=== PATIENT | female | born 1955 | race African-American/Black ===

== ENCOUNTER 2020-11-17 09:18 | Emergency (ER) | payer MEDICARE, BC ==
[~2020-11-17] VITALS: Ht 160 cm; Wt 86.0 kg
[2020-11-17] MEDS ORDERED: KETOROLAC 60 MG/2 ML VIAL. IM ONE (10:00)
[2020-11-17] MEDS ORDERED: ORPHENADRINE CITRATE 60 MG/2 ML VIAL. IM ONE (10:00)
--- NOTE | 2020-11-17 10:23 | PHYS DOC ---
Past History Past Medical History: Anxiety, Arthritis, Fibromyalgia, GERD, Hypertension, IBS Past Surgical History: Other Additional Past Surgical Histo: ROTATER CUFF, RIGHT KNEE SURGERY, HERNIA, PITUITARY TUMOR Alcohol Use: None General Adult EDM: Chief Complaint: BACK PAIN OR INJURY HPI: HPI: Patient is a 65-year-old female coming in for a few days of exacerbation of chronic back pain. Patient took a leftover muscle relaxer that she had and Tylenol without improvement. Has had recurrence at home but does avoid taking them. Had MRI done and has a follow-up scheduled with her neurosurgeon for the results. Denies any urine complaints, recent injury or falls. Denies any fevers, weight loss, bowel or bladder dysfunction. Says the pain sometimes radiates down her buttock to her thigh. Review of Systems: Review of Systems: All other systems within normal limits except for as noted in the HPI Current Medications: Current Meds: Current Medications Medications (Trade) Dose Ordered Sig/[facility] Start Time Stop Time Status Last Admin Dose Admin Ketorolac Tromethamine (Toradol Im) 60 mg 1X ONCE 11/17/20 10:00 11/17/20 10:06 DC Orphenadrine Citrate (Norflex) 60 mg 1X ONCE 11/17/20 10:00 11/17/20 10:06 DC Allergies: Allergies: Allergies Coded Allergies Type Severity Reaction Last Updated Verified No Known Drug Allergies 11/17/20 No Physical Exam: PE: Constitutional: Well developed, well nourished, no acute distress, non-toxic appearance. [] HENT: Normocephalic, atraumatic, bilateral external ears normal, nose normal. [] Eyes: PERRLA, conjunctiva normal, no discharge. [] Neck: No rigidity, supple, no stridor. [] Cardiovascular: Regular rate and rhythm, brisk cap refill [] Lungs & Thorax: Non labored symmetric respirations, no tachypnea or respiratory distress [] Abdomen: Soft, nondistended. Skin: Warm, dry, no erythema, no rash. [] Back: No spinal tenderness, no step-off deformities, bilateral lower lumbar tenderness palpation Extremities: No deformities, range of motion grossly intact, no lower extremity edema [] Neurologic: Alert and oriented X 3, no focal deficits noted. [] Psychologic: Affect normal, judgement normal, mood normal. [] Current Patient Data: Vital Signs: Vital Signs Date Time Temp Pulse Resp B/P (MAP) Pulse Ox O2 Delivery O2 Flow Rate FiO2 11/17/20 09:27 97.7 105 18 128/71 (90) 97 Room Air EKG: EKG: [] Radiology/Procedures: Radiology/Procedures: Lumbar spine 3 views. HISTORY: Low back pain 3 views were taken of the lumbar spine. Spine is in normal alignment. There is disc space narrowing at L4-5. There is mild lower lumbar facet arthritis. There is no acute lumbar fracture. IMPRESSION: 1. Degenerative disc disease at L4-5. [] Heart Score: Risk Factors: Risk Factors: DM, Current or recent (<one month) smoker, HTN, HLP, family history of CAD, obesity. Risk Scores: Score 0 - 3: 2.5% MACE over next 6 weeks - Discharge Home Score 4 - 6: 20.3% MACE over next 6 weeks - Admit for Clinical Observation Score 7 - 10: 72.7% MACE over next 6 weeks - Early Invasive Strategies Course & Med Decision Making: Course & Med Decision Making Pertinent Labs and Imaging studies reviewed. (See chart for details) [] Dragon Disclaimer: Dragon Disclaimer: This electronic medical record was generated, in whole or in part, using a voice recognition dictation system. Departure Departure: Impression: Primary Impression: Acute exacerbation of chronic low back pain Disposition: 01 DC HOME SELF CARE/HOMELESS Condition: STABLE Referrals: PCP,NO (PCP) Patient Instructions: Chronic Back Pain Scripts Ondansetron (ONDANSETRON ODT) 4 Mg Tab.rapdis 1 TAB PO PRN Q6-8HRS PRN for NAUSEA, #16 TAB Prov: NICANOR COLUNGA MD 11/17/20 Cyclobenzaprine Hcl (CYCLOBENZAPRINE HCL) 5 Mg Tablet 1 TAB PO TID PRN for PAIN for 5 Days, #15 TAB Prov: NICANOR COLUNGA MD 11/17/20 NICANOR COLUNGA MD Nov 17, 2020 10:23
--- NOTE | 2020-11-17 10:42 | RAD ---
Lumbar spine 3 views. HISTORY: Low back pain 3 views were taken of the lumbar spine. Spine is in normal alignment. There is disc space narrowing a t L4-5. There is mild lower lumbar facet arthritis. There is no acute lumbar fracture. IMPRESSION: 1. Degenerative disc disease at L4-5. Electronically signed by: Alber Webb MD (11/17/2020 10:40 AM) [facility]
[2020-11-17 10:52] LABS: BILIRUBIN,URINE NEG (NEG); CLARITY,URINE HAZY; COLOR,URINE YELLOW; GLUCOSE,URINE NEG (NEG)
[2020-11-17 10:53] LABS: BACTERIA,URINE FEW /HPF (0-FEW); NITRITE,URINE NEG (NEG); SQUAMOUS EPITHELIAL CELL,UR MOD /LPF; UROBILINOGEN,URINE 0.2 mg/dL (0.2 mg/dL)
[2020-11-17 11:38] VITALS: BP 116/62
[2020-11-17] MEDS ORDERED: CYCL5TAB PO (11:46)
[2020-11-17] MEDS ORDERED: ONDA4TAB12 PO (11:46)
== END 2020-11-17 11:53 | disposition home or self-care (01) ==
LOC: ER 09:18
DX: G89.29 Other chronic pain (principal); M54.5 Low back pain; K21.9 Gastro-esophageal reflux disease without esophagitis; I10 Essential (primary) hypertension; K58.9 Irritable bowel syndrome, unspecified
CPT/HCPCS: 72100; 81001; 87086; 96372; 99284; J1885; J2360

== ENCOUNTER 2021-01-02 05:52 | Emergency (ER) | payer MEDICARE, BC ==
[~2021-01-02] VITALS: Ht 160 cm; Wt 86.0 kg
[2021-01-02 05:52] VITALS: BP 141/77
[~2021-01-02 05:52] MED LIST: CYCL5TAB PO; ONDA4TAB12 PO
--- NOTE | 2021-01-02 06:25 | PHYS DOC ---
Past History Past Medical History: Anxiety, Arthritis, Fibromyalgia, GERD, Hypertension, IBS Past Surgical History: Other Additional Past Surgical Histo: ROTATER CUFF, RIGHT KNEE SURGERY, HERNIA, PITUITARY TUMOR Alcohol Use: None Adult General Chief Complaint Chief Complaint: BACK PAIN OR INJURY HPI HPI Patient is a 61-year-old female with known history of spinal degenerative disease and chronic back pain now presenting to emergency department due to worsening of her pain. Patient had been seen here approximately 2 months ago with back pain and and been following up with a neurosurgeon regarding eventually obtaining a procedure to help with her back pain. Patient states that she has been in intermittent pain since that time. States that over the last 2 days is worse to the point where she is no longer able to sleep as having difficulty ambulating. Denies any reinjury to the area. Denies any nausea, vomiting, fever, chills, dizziness, lightheadedness or lower extremity numbness or weakness. Review of Systems Review of Systems Constitutional: Denies fever or chills [] Eyes: Denies change in visual acuity, redness, or eye pain [] HENT: Denies nasal congestion or sore throat [] Respiratory: Denies cough or shortness of breath [] Cardiovascular: No additional information not addressed in HPI [] GI: Denies abdominal pain, nausea, vomiting, bloody stools or diarrhea [] : Denies dysuria or hematuria [] Musculoskeletal: Denies back pain or joint pain [] Integument: Denies rash or skin lesions [] Neurologic: Denies headache, focal weakness or sensory changes [] Endocrine: Denies polyuria or polydipsia [] All other systems were reviewed and found to be within normal limits, except as documented in this note. Current Medications Current Medications Current Medications Medications (Trade) Dose Ordered Sig/[facility] Start Time Stop Time Status Last Admin Dose Admin Ketorolac Tromethamine (Toradol Im) 60 mg 1X ONCE 01/02/21 06:30 01/02/21 06:31 UNV Orphenadrine Citrate (Norflex) 60 mg 1X ONCE 01/02/21 06:30 01/02/21 06:31 UNV Allergies Allergies Allergies Coded Allergies Type Severity Reaction Last Updated Verified No Known Drug Allergies 11/17/20 No Physical Exam Physical Exam Constitutional: Well developed, well nourished, no acute distress, non-toxic appearance. [] HENT: Normocephalic, atraumatic, bilateral external ears normal, oropharynx moist, no oral exudates, nose normal. [] Eyes: PERRLA, EOMI, conjunctiva normal, no discharge. [] Neck: Normal range of motion, no tenderness, supple, no stridor. [] Cardiovascular:Heart rate regular rhythm, no murmur [] Lungs & Thorax: Bilateral breath sounds clear to auscultation [] Abdomen: Bowel sounds normal, soft, no tenderness, no masses, no pulsatile masses. [] Skin: Warm, dry, no erythema, no rash. [] Back: No tenderness, no CVA tenderness. [] Extremities: No tenderness, no cyanosis, no clubbing, ROM intact, no edema. [] Neurologic: Alert and oriented X 3, normal motor function, normal sensory function, no focal deficits noted. [] Psychologic: Affect normal, judgement normal, mood normal. [] EKG EKG [] Radiology/Procedures Radiology/Procedures [] Heart Score C/O Chest Pain: No Risk Factors: Risk Factors: DM, Current or recent (<one month) smoker, HTN, HLP, family history of CAD, obesity. Risk Scores: Risk Factors: DM, Current or recent (<one month) smoker, HTN, HLP, family history of CAD, obesity. Course & Med Decision Making Course & Med Decision Making Pertinent Labs and Imaging studies reviewed. (See chart for details) 65-year-old female presenting emergency department given chronic back pain. To review the previous chart and the patient was given Norflex and Toradol and this seemed to improve her symptoms. Will try again this time and reevaluate. 06:58 -patient states her symptoms have resolved. At this time requesting discharge home. Will discharge home patient plan to follow-up with Dr. Nicola Farfan Disclaimer Naheed Disclaimer This electronic medical record was generated, in whole or in part, using a voice recognition dictation system. Departure Departure: Impression: Primary Impression: Back pain Disposition: 01 DC HOME SELF CARE/HOMELESS Condition: GOOD Referrals: EREN FISCHER (PCP) Patient Instructions: Back Pain, Adult Additional Instructions: EMERGENCY DEPARTMENT GENERAL DISCHARGE INSTRUCTIONS Thank you for coming to [facility] Emergency Department (ED) today and trusting us with you care. We trust that you had a positive experience in our Emergency Department. If you wish to speak to the department management, you may call the Director at [phone]. YOUR FOLLOW UP INSTRUCTIONS ARE FOLLOWS: 1. Do you have a private Doctor? If you do not have a private doctor, please ask for a resource list of physicians or clinics that may be able to assist you with follow up care. 2. The Emergency Physicain has interpreted your x-rays. The X-Ray specialist will also review them. If there is a change in the findings, you will be notified in 48 hours when at all possible. 3. A lab test or culture has been done, your results will be reviewed and you will be notified if you need a change in treatment. ADDITIONAL INSTRUCTIONS AND INFORMATION: 1. Your care today has been supervised by a physician who is specially trained in emergency care. Many problems require more than one evaluation for a complete diagnosis and treatment. We recommend that you schedule your follow up appointment as recommended to ensure complete treatment of you illness or injury. If you are unable to obtain follow up care and continue to have a problem, or if your condition worsens, we recommend that you return to the ED. 2. We are not able to safely determine your condition over the phone nor are we able to give sound medical advice over the phone. For these safety reasons, if you call for medical advice we will ask you to come to the ED for further evaluation. 3. If you have any questions regarding these discharge instructions please call the ED at [phone]. SAFETY INFORMATION: In the interest of safety, wellness, and injury prevention; we encourage you to wear your sealbelt, if you smoke; quite smoking, and we encourage family to use a protective helmet for bicycling and other sporting events that present an increased risk for head injury. IF YOUR SYMPTOMS WORSEN OR NEW SYMPTOMS DEVELOP, OR YOU HAVE CONCERNS ABOUT YOUR CONDITION; OR IF YOUR CONDITION WORSENS WHILE YOU ARE WAITING FOR YOUR FOLLOW UP APPOINT MENT; EITHER CONTACT YOUR PRIMARY CARE DOCTOR, THE PHYSICIAN WHOSE NAME AND NUMBER YOU WERE GIVEN, OR RETURN TO THE ED IMMEDIATELY. SELENE CAREY MD Jan 02, 2021 06:25
[2021-01-02] MEDS ORDERED: KETOROLAC 60 MG/2 ML VIAL. IM ONE (06:30)
[2021-01-02] MEDS ORDERED: ORPHENADRINE CITRATE 60 MG/2 ML VIAL. IM ONE (06:30)
== END 2021-01-02 07:05 | disposition home or self-care (01) ==
LOC: ER 05:52
DX: G89.29 Other chronic pain (principal); M54.89 Other dorsalgia; R26.2 Difficulty in walking, not elsewhere classified; F41.9 Anxiety disorder, unspecified; M19.90 Unspecified osteoarthritis, unspecified site; M79.7 Fibromyalgia; K21.9 Gastro-esophageal reflux disease without esophagitis; I10 Essential (primary) hypertension; K58.9 Irritable bowel syndrome, unspecified
CPT/HCPCS: 96372; 99284; J1885; J2360

== ENCOUNTER 2021-03-16 03:04 | Emergency (ER) | payer MEDICARE, BC ==
[~2021-03-16] VITALS: Ht 160 cm; Wt 86.0 kg
[2021-03-16] MEDS ORDERED: amlodipine (03:45)
[2021-03-16] MEDS ORDERED: GABA-586 PO (03:45)
[2021-03-16] MEDS ORDERED: losartin (03:45)
[2021-03-16] MEDS ORDERED: HYDR-2155 PO (03:54)
--- NOTE | 2021-03-16 03:54 | PHYS DOC ---
Past History Past Medical History: Anxiety, Arthritis, Fibromyalgia, GERD, Hypertension, IBS Past Surgical History: Other Additional Past Surgical Histo: ROTATER CUFF, RIGHT KNEE SURGERY, HERNIA, PITUITARY TUMOR Alcohol Use: None Adult General Chief Complaint Chief Complaint: MUSCLE SPASM/CRAMP [facility] HPI Patient is a 65-year-old female with a past medical history significant for GERD, IBS, anxiety and fibromyalgia who presents with left leg spasms. States has been going on intermittently over the last month, and cannot identify any aggravating or alleviating factors. Denies any recent travel, illnesses, fevers, chest pain, shortness of breath, abdominal pain, nausea, vomiting, dysuria, hematuria or blood in the stool. Denies any trouble making urine or having bowel movements. Denies any numbness/weakness/tingling. States that when she is having spasm or cramp she can still walk but it causes discomfort and when she is not she can walk normally. States she has not had a chance to talk to her primary care physician about this. Review of Systems Review of Systems Review of systems otherwise unremarkable except noted in HPI Allergies Allergies Allergies Coded Allergies Type Severity Reaction Last Updated Verified No Known Drug Allergies 03/16/21 No Physical Exam Physical Exam Constitutional: Well developed, well nourished, no acute distress, non-toxic appearance. [] Neck: Normal range of motion, Cardiovascular:Heart rate regular rhythm, no murmur [] Lungs & Thorax: No respiratory distress Skin: Warm, dry, no erythema, no rash. [] Back: No tenderness, no CVA tenderness. [] Extremities: No tenderness, no cyanosis, no clubbing, ROM intact, no edema. [] Neurologic: Alert and oriented X 3, normal motor function, normal sensory function, able to sit, stand and walk, no focal deficits noted. [] Psychologic: Affect normal, judgement normal, mood normal. [] EKG EKG [] Radiology/Procedures Radiology/Procedures [] Heart Score C/O Chest Pain: No Risk Factors: Risk Factors: DM, Current or recent (<one month) smoker, HTN, HLP, family h istory of CAD, obesity. Risk Scores: Risk Factors: DM, Current or recent (<one month) smoker, HTN, HLP, family history of CAD, obesity. Course & Med Decision Making Course & Med Decision Making Patient is a 65-year-old female who presents with left leg spasms Vital signs not concerning. Physical exam noted above. Given pain medication in the ED. Discussed pain management at home. Given pain prescription. Advised to follow- up with primary care physician. Gave return precautions to the ED. Patient grateful, verbalized understanding and agreed with plan of discharge. [] Dragon Disclaimer Dragon Disclaimer This electronic medical record was generated, in whole or in part, using a voice recognition dictation system. Departure Departure: Impression: Primary Impression: Leg muscle spasm Disposition: HOME / SELF CARE / HOMELESS Condition: GOOD Referrals: EREN FISCHER (PCP) Patient Instructions: Muscle Cramps Additional Instructions: Please read all the attached information very carefully. Please take all your medications as prescribed. Continue taking your muscle relaxers as prescribed as well. You can do a short course of ibuprofen at 600 mg 3 times a day with your prescription pain medicine. Please call your primary care physician first thing Thursday morning to discuss your ED visit and set up a follow-up visit as soon as possible. Please come back to the ED with new or concerning symptoms as discussed. Scripts Hydrocodone Bit/Acetaminophen (HYDROCODONE-APAP 5-325 ) 1 Each Tablet 1 TAB PO TID PRN for leg pain for 3 Days, #9 TAB 0 Refills Prov: ELANA MO MD 03/16/21 ELANA MO MD Mar 16, 2021 03:54
[2021-03-16 04:00] VITALS: BP 110/71
[2021-03-16] MEDS ORDERED: oxyCODONE/APAP 5/325 1 TAB TABLET PO ONE (04:00)
[2021-03-16] MEDS ORDERED: IBUPROFEN 600 MG TABLET. PO ONE (04:00)
[2021-03-16] MEDS ORDERED: KETOROLAC 30 MG/ML VIAL. ONE (04:03)
[2021-03-16] MEDS ORDERED: KETOROLAC 30 MG/ML VIAL. IM ONE (04:15)
== END 2021-03-16 04:13 | disposition home or self-care (01) ==
LOC: ER 03:04
DX: M62.831 Muscle spasm of calf (principal); K21.9 Gastro-esophageal reflux disease without esophagitis; F41.9 Anxiety disorder, unspecified; I10 Essential (primary) hypertension
CPT/HCPCS: 96372; 99283; J1885

== ENCOUNTER → 2021-04-25 | Outpatient (CLI) | payer MEDICARE, BC ==
[~2021-04-25] MED LIST changes: +GABA-586 PO; +HYDR-2155 PO; +amlodipine; +losartin
--- NOTE | 2021-04-25 16:46 | RAD ---
EXAMINATION: XR SHOULDER_RIGHT 2+ VIEWS CLINICAL HISTORY: Right shoulder pain TECHNIQUE: XR SHOULDER_RIGHT 2+ VIEWS Number of Images/Views: 3 COMPARISON: None FINDINGS: Glenohumeral joint space alignment relatively well-maintained. Moderate hypertrophic acromioclavicula r degenerative changes. No acute fracture. Acromiohumeral interval maintained. IMPRESSION: No acute osseous abnormality. Electronically signed by: David Bean DO (04/25/2021 4:44 PM) [id number]
--- NOTE | 2021-04-25 16:52 | RAD ---
EXAMINATION: XR KNEE_AP BILAT STANDING, XR KNEE_RT 1-2 VIEWS CLINICAL HISTORY: BILATERAL KNEE PAIN, RECENT LEFT KNEE REPLACEMENT TECHNIQUE: XR KNEE_AP BILAT STANDING, XR KNEE_RT 1-2 VIEWS Number of Images/Views: 3 COMPARISON: None FINDINGS: Marked joint space narrowing in the medial compartment with [id number] contact and associated genu varus. Moderate to severe lateral compartment narrowing with chondrocalcinosis. Moderate to severe pa tellofemoral compartment narrowing. Tricompartmental small marginal osteophytes. No acute fracture. S mall suprapatellar enthesophyte. No significant joint effusion. Left total knee arthroplasty incompletely evaluated. IMPRESSION: Essentially unchanged tricompartmental degenerative changes right knee, advanced in the medial compar tment. Electronically signed by: David Bean DO (04/25/2021 4:49 PM) [id number]
--- NOTE | 2021-04-25 16:52 | RAD ---
EXAMINATION: XR KNEE_AP BILAT STANDING, XR KNEE_RT 1-2 VIEWS CLINICAL HISTORY: BILATERAL KNEE PAIN, RECENT LEFT KNEE REPLACEMENT TECHNIQUE: XR KNEE_AP BILAT STANDING, XR KNEE_RT 1-2 VIEWS Number of Images/Views: 3 COMPARISON: None FINDINGS: Marked joint space narrowing in the medial compartment with [id number] contact and associated genu varus. Moderate to severe lateral compartment narrowing with chondrocalcinosis. Moderate to severe pa tellofemoral compartment narrowing. Tricompartmental small marginal osteophytes. No acute fracture. S mall suprapatellar enthesophyte. No significant joint effusion. Left total knee arthroplasty incompletely evaluated. IMPRESSION: Essentially unchanged tricompartmental degenerative changes right knee, advanced in the medial compar tment. Electronically signed by: David Baen DO (04/25/2021 4:49 PM) [id number]
== END ==
LOC: RAD 15:35
PROVIDERS: ATTEND Physician Assistant
DX: M19.011 Primary osteoarthritis, right shoulder (principal); M17.11 Unilateral primary osteoarthritis, right knee; M21.161 Varus deformity, not elsewhere classified, right knee; M11.261 Other chondrocalcinosis, right knee; M25.761 Osteophyte, right knee; Z96.652 Presence of left artificial knee joint
CPT/HCPCS: 73030; 73560; 73565

== ENCOUNTER → 2021-05-24 | Outpatient (CLI) | payer MEDICARE, BC ==
--- NOTE | 2021-05-24 11:10 | RAD ---
3 views left shoulder without comparison for left shoulder pain. FINDINGS: There is no fracture, dislocation, or acute osseous abnormality. There is calcified case ov erlying greater tuberosity, which may be insertional related to rotator cuff calcific tendinosis. Mil d narrowing of the glenohumeral joint. Mild acromioclavicular arthrosis. IMPRESSION: 1. No acute osseous abnormality. 2. Dystrophic calcification overlying the greater tuberosity, possibly due to calcific tendinosis of the terminal rotator cuff insertion. Electronically signed by: Andrade Ayon MD (05/24/2021 11:07 AM) [id number]
== END ==
LOC: RAD 09:28
PROVIDERS: ATTEND Physician Assistant
DX: M19.012 Primary osteoarthritis, left shoulder (principal); M25.812 Other specified joint disorders, left shoulder
CPT/HCPCS: 73030

== ENCOUNTER → 2021-06-21 | Outpatient (CLI) | payer MEDICARE, BC ==
--- NOTE | 2021-06-21 17:45 | RAD ---
EXAM: XR CERVICAL SPINE 2-3V 06/21/2021 8:52 AM CLINICAL INDICATION: Cervical radiculopathy COMPARISON: MRI cervical spine 03/22/2020 TECHNIQUE: 4 views of the cervical spine FINDINGS: No acute fracture. Alignment is normal. There is mild disc space narrowing, greatest at C5 -C6 where there are prominent anterior osteophytes. Mild facet arthrosis. The dens is intact and symm etric and the ring of C1. Prevertebral soft tissues normal. There are calcifications in the carotid b ulbs. IMPRESSION: Mild degenerative disc disease, greatest at C5-C6. Electronically signed by: Eva Neves MD (06/21/2021 5:42 PM) [id number]
== END ==
LOC: RAD 08:35
PROVIDERS: ATTEND Physician Assistant
DX: M50.122 Cervical disc disorder at C5-C6 level with radiculopathy (principal); M47.22 Other spondylosis with radiculopathy, cervical region; M25.78 Osteophyte, vertebrae; M48.02 Spinal stenosis, cervical region; I65.29 Occlusion and stenosis of unspecified carotid artery
CPT/HCPCS: 72040

== ENCOUNTER → 2021-07-03 | Outpatient (CLI) | payer MEDICARE, BC ==
--- NOTE | 2021-07-03 16:38 | RAD ---
MG 2D BILAT SCREENING 07/03/2021 8:29 AM INDICATION: Asymptomatic screening mammogram. COMPARISON: None available TECHNIQUE: 2D CC and MLO projections were obtained of each breast. FINDINGS: Breast density: Category C: The breats are heterogeneously dense, which may obscure small masses. Right breast: There are no suspicious microcalcifications, masses or areas of architectural distortio n. Left breast: There are no suspicious microcalcifications, masses or areas of architectural distortion . IMPRESSION: Negative bilateral mammogram. BI-RADS category: 1; Negative Recommendations: Recommend annual screening mammography in one year. Electronically signed by: Yahaira Anthony MD (07/03/2021 4:36 PM) [id number]
== END ==
LOC: MAMMO 08:14
PROVIDERS: ATTEND Family Medicine
DX: Z12.31 Encounter for screening mammogram for malignant neoplasm of breast (principal)
CPT/HCPCS: 77067

== ENCOUNTER → 2021-07-26 | Outpatient (CLI) | payer MEDICARE, BC ==
--- NOTE | 2021-07-27 08:12 | RAD ---
XR LUMBAR SPINE 1 VIEW, XR L-SPINE BENDING ONLY 2-3 VIEWS dated 07/26/2021 8:53 AM. History: Reason: SPONDYLOSTHESIS, BACK PAIN / Spl. Instructions: / History: Comparison: Study of 11/17/2020. Findings: Alignment appears normal. No fracture is seen. There is some disc narrowing especially at L4-5 and L5 -S1. No destructive process is evident. Radiographs obtained with flexion and extension show no apparent instability. Impression: 1. Degenerative disc disease. No apparent instability. Electronically signed by: Shahab Shepherd Jr., MD (07/27/2021 8:09 AM) [id number]
== END ==
LOC: RAD 08:36
PROVIDERS: ATTEND Neurological Surgery
DX: M51.36 Other intervertebral disc degeneration, lumbar region (principal); M43.16 Spondylolisthesis, lumbar region
CPT/HCPCS: 72020; 72100

== ENCOUNTER → 2021-08-06 | Outpatient (CLI) | payer MEDICARE, BC ==
--- NOTE | 2021-08-06 11:03 | RAD ---
EXAM: DUAL ENERGY X-RAY ABSORPTIOMETRY (DEXA). HISTORY: Postmenopausal screening. FINDINGS: The lowest measured T-score is -2.0 in the right hip, based on a bone mineral density of 0. 713 g/cm^2. Refer to the worksheets for full detail. No comparison examinations are available. IMPRESSION: 1. Low bone mass. Bone mineral density yields a T-score between -1.0 and -2.5. Fracture risk is incre ased. 2. FRAX report: Not calculated. METHODOLOGY: Dual energy x-ray absorptiometry was performed to measure bone mineral density. The foll owing analysis is based on the 2019 Official Positions of the International Society for Clinical Dens itometry: Measurements of the hips and the average of L1-L4 are preferred. When the spine and/or hip cannot be feasibly measured or interpreted, or in the setting of hyperparathyroidism, distal radial bone minera l density may be measured. The lumbar spine T-score is based on the average bone mineral density of L1-L4. In the setting of art ifact or anatomic abnormality, some lumbar levels may be excluded, and the remaining levels used for calculation. A single lumbar level is not used for diagnosis, and if only a single level is available for assessment, another anatomic site will be used to assign a diagnosis. The hip T-score is based on the bone mineral density measurement of the femoral neck or total proxima l femur of either side, whichever is lowest. Bilateral mean values are not used for diagnosis. The forearm T-score is derived from 33% of the distal radius of the nondominant forearm. Electronically signed by: Anneliese Slaughter MD (08/06/2021 11:01 AM) [id number]
== END ==
LOC: DXRAD 09:46
PROVIDERS: ATTEND Family Medicine
DX: M85.88 Other specified disorders of bone density and structure, other site (principal); Z78.0 Asymptomatic menopausal state
CPT/HCPCS: 77080

== ENCOUNTER 2021-10-02 11:00 | Emergency (ER) | payer MEDICARE, BC ==
[~2021-10-02] VITALS: Ht 165.1 cm; Wt 87.0 kg
--- NOTE | 2021-10-02 11:20 | PHYS DOC ---
Past History Past Medical History: Anxiety, Arthritis, Fibromyalgia, GERD, Hypertension, IBS, Other Additional Past Medical Histor: pit tumor removed >10yrs ago Past Surgical History: Other Additional Past Surgical Histo: ROTATER CUFF, RIGHT KNEE SURGERY, HERNIA, PITUITARY TUMOR Alcohol Use: None General Adult EDM: Chief Complaint: CHEST WALL PAIN HPI: HPI: Patient is a 66-year-old female who presents to the emergency department for a nonproductive cough, mild shortness of breath, nausea and nasal and chest congestion with chest wall pain only while coughing. Patient reports that symptoms started 2 days ago. She denies any sick exposures, fevers, loss of taste or smell, vomiting, diarrhea. Patient has a history of anxiety, arthritis, fibromyalgia, hypertension. Review of Systems: Review of Systems: Constitutional: See HPI HENT: See HPI Respiratory: See HPI Cardiovascular: See HPI GI: See HPI Neurologic: See HPI Psychiatric: See HPI Allergies: Allergies: Allergies Coded Allergies Type Severity Reaction Last Updated Verified No Known Drug Allergies 03/16/21 No Physical Exam: PE: Constitutional: Well developed, well nourished, no acute distress, non-toxic appearance. [] HENT: Normocephalic, atraumatic, bilateral external ears normal, oropharynx moist, no oral exudates, nose normal. [] Eyes: PERRL, EOMI, conjunctiva normal, no discharge. [] Neck: Normal range of motion, no tenderness, supple, no stridor. [] Cardiovascular:Heart rate tachycardia rhythm, no murmur [] Lungs & Thorax: Bilateral breath sounds clear to auscultation, chest pain reproducable [] Abdomen: Bowel sounds normal, soft, no tenderness, no masses, no pulsatile masses. [] Skin: Warm, dry, no erythema, no rash. [] Back: normal ROM Extremities: No tenderness, no cyanosis, no clubbing, ROM intact, no edema. [] Neurologic: Alert and oriented X 3, normal motor function, normal sensory function, no focal deficits noted. [] Psychologic: Affect normal, judgement normal, mood normal. [] Current Patient Data: Labs: Laboratory Tests Test 10/02/21 11:30 White Blood Count 12.4 x10^3/uL Red Blood Count 3.75 x10^6/uL Hemoglobin 11.9 g/dL Hematocrit 35.6 % Mean Corpuscular Volume 95 fL Mean Corpuscular Hemoglobin 32 pg Mean Corpuscular Hemoglobin Concent 34 g/dL Red Cell Distribution Width 14.2 % Platelet Count 271 x10^3/uL Neutrophils (%) (Auto) 69 % Lymphocytes (%) (Auto) 17 % Monocytes (%) (Auto) 12 % Eosinophils (%) (Auto) 1 % Basophils (%) (Auto) 1 % Neutrophils # (Auto) 8.6 x10^3uL Lymphocytes # (Auto) 2.1 x10^3/uL Monocytes # (Auto) 1.5 x10^3/uL Eosinophils # (Auto) 0.2 x10^3/uL Basophils # (Auto) 0.1 x10^3/uL Sodium Level 142 mmol/L Potassium Level 3.8 mmol/L Chloride Level 106 mmol/L Carbon Dioxide Level 24 mmol/L Anion Gap 12 Blood Urea Nitrogen 13 mg/dL Creatinine 0.9 mg/dL Estimated GFR (Cockcroft-Gault) 75.6 Glucose Level 97 mg/dL Calcium Level 8.5 mg/dL Troponin I High Sensitivity < 4 ng/L Influenza Type A (Rapid) Negative Influenza Type B (Rapid) Negative Current Medications Medications (Trade) Dose Ordered Sig/Randal Route PRN Reason Start Time Stop Time Status Last Admin Dose Admin Sodium Chloride 1,000 ml @ 1,000 mls/hr 1X ONCE IV 10/02/21 11:30 10/02/21 12:29 10/02/21 11:31 Acetaminophen (Tylenol) 1,000 mg 1X ONCE PO 10/02/21 11:30 10/02/21 11:31 DC 10/02/21 11:30 EKG: EKG: EKG performed by ER staff at 1139 shows sinus tachycardia with a rate of 113, QTc 444, no STEMI read by Dr. Rivera at 1200[] Radiology/Procedures: Radiology/Procedures: []PROCEDURE: PORTABLE CHEST 1V EXAM: Chest, single view. HISTORY: Cough. COMPARISON: None. FINDINGS: A frontal view of the chest is obtained. There is no infiltrate, pleural fusion or pneumothorax. The heart is normal in size. IMPRESSION: No acute pulmonary finding. Electronically signed by: Anneliese Moy MD (10/02/2021 11:37 AM) [id number] DICTATED AND SIGNED BY: ANNELIESE MOY MD DATE: 10/02/21 1137 CC: NIC ALMODOVAR RN POSTPARTUM; EREN FISCHER ~MTH0 0 Heart Score: C/O Chest Pain: No Risk Factors: Risk Factors: DM, Current or recent (<one month) smoker, HTN, HLP, family history of CAD, obesity. Risk Scores: Score 0 - 3: 2.5% MACE over next 6 weeks - Discharge Home Score 4 - 6: 20.3% MACE over next 6 weeks - Admit for Clinical Observation Score 7 - 10: 72.7% MACE over next 6 weeks - Early Invasive Strategies Course & Med Decision Making: Course & Med Decision Making Pertinent Labs and Imaging studies reviewed. (See chart for details) Patient presents to the emergency department for multiple symptoms including nasal and chest congestion, nonproductive cough, mild shortness of breath, nausea and chest wall tenderness only while coughing. Patient is mildly tachycardic but is not hypoxic or in any acute respiratory distress. Patients work-up in the ER consisted of blood work, EKG, chest x-ray, Covid and influenza testing. Due to patient's tachycardia, she was treated with a liter of normal saline and Tylenol for pain. Her heart rate improved following treatment and is 101bpm. Patient continues to be non labored and her vital signs are stable. Blood work in the ER was mostly unremarkable she did have mild leukocytosis. Patient negative troponin. Chest x-ray showed no acute findings. Influenza test was negative. Patient's Covid test is pending at this time and he will be notified of those results when they become available in approximately 2 days, advised to self isolate. I discussed with patient all findings and diagnostic testing as well as the need to follow-up with PCP for further evaluation and treatment or return to the ER if any new or worsening symptoms. Strict return precautions were also discussed at length. Patient voiced understanding and agreement with the plan. Patient is hemodynamically stable at the time of disposition. Naheed Disclaimer: Naheed Disclaimer: This electronic medical record was generated, in whole or in part, using a voice recognition dictation system. Departure Departure: Impression: Primary Impression: Person under investigation for COVID-19 Disposition: HOME / SELF CARE / HOMELESS Condition: GOOD Referrals: EREN FISCHER (PCP) Patient Instructions: Cough, Adult Additional Instructions: You were seen in the emergency department for congestion, cough, shortness of breath. Your blood work was unremarkable. Your influenza test was negative. Your Covid test is pending at this time and you will be notified of those results when they become available in approximately 2 days. Please self isolate until you receive these results. For your shortness of breath you are being discharged home with an inhaler that you can use as needed. You are also being discharged home with cough medicine that you can use as needed. For your congestion please take Mucinex [id number]. Increase your fluids and rest. For any pain or fevers take Tylenol and/or ibuprofen. Follow-up with your primary care provider tomorrow regarding your ER visit. Please return to the emergency department if you develop worsening of your shortness of breath, chest pain, high fevers refractory to treatment, intractable nausea or vomiting, weakness or any new or worsening concerns. Scripts Benzonatate (BENZONATATE) 200 Mg Capsule 1 CAP PO PRN TID PRN for cough for 7 Days, #21 CAP 0 Refills Prov: NIC ALMODOVAR APRN 10/02/21 Albuterol Sulfate (PROAIR HFA INHALER) 8.5 Gm Hfa.aer.ad 1 PUFF INH PRN Q6HRS PRN for SHORTNESS OF BREATH for 30 Days, #1 EACH 0 Refills Prov: NIC ALMODOVAR APRN 10/02/21 NIC ALMODOVAR APRN Oct 02, 2021 11:20
[2021-10-02] MEDS ORDERED: IV NORMAL SALINE 1,000ML 1,000 ML IV ONE (11:30)
[2021-10-02] MEDS ORDERED: ACETAMINOPHEN 500 MG TABLET PO ONE (11:30)
--- NOTE | 2021-10-02 11:39 | RAD ---
EXAM: Chest, single view. HISTORY: Cough. COMPARISON: None. FINDINGS: A frontal view of the chest is obtained. There is no infiltrate, pleural fusion or pneumoth orax. The heart is normal in size. IMPRESSION: No acute pulmonary finding. Electronically signed by: Anneliese Slaughter MD (10/02/2021 11:37 AM) [id number]
[2021-10-02 11:52] LABS: BASO # 0.1 x10^3/uL (0.0-0.2); BASO % 1 % (0-3); EOS # 0.2 x10^3/uL (0.0-0.7); EOS % 1 % (0-3); HEMATOCRIT 35.6 % (36.0-47.0); HEMOGLOBIN 11.9 g/dL (12.0-15.5); LYMPH # 2.1 x10^3/uL (1.0-4.8); LYMPH % 17 % (24-48); MEAN CORPUSCULAR HEMOGLOBIN 32 pg (25-35); MEAN CORPUSCULAR HGB CONC 34 g/dL (31-37); MEAN CORPUSCULAR VOLUME 95 fL (79-100); MONO # 1.5 x10^3/uL (0.0-1.1); MONO % 12 % (0-9); NEUT # 8.6 x10^3uL (1.8-7.7); NEUT % 69 % (31-73); PLATELET COUNT 271 x10^3/uL (140-400); RED BLOOD COUNT 3.75 x10^6/uL (3.50-5.40); RED CELL DISTRIBUTION WIDTH 14.2 % (11.5-14.5); WHITE BLOOD COUNT 12.4 x10^3/uL (4.0-11.0)
[2021-10-02 11:58] LABS: CALCIUM 8.5 mg/dL (8.5-10.1); CREATININE 0.9 mg/dL (0.6-1.0); GFR 75.6; POTASSIUM 3.8 mmol/L (3.5-5.1)
--- NOTE | 2021-10-02 12:05 | EKG ---
[address] [address] Test Date: 2021-10-02 Test Time: 11:39:00 Pat Name: CHIRAG MEDINA Department: Room: Gender: F It Intern: MARTHA : 1955 Requested By: NIC ALMODOVAR Order Number: [id number] Reading MD: Measurements Intervals [place] Rate: 113 P: 47 HI: 164 QRS: 4 QRSD: 78 T: 31 QT: 320 QTc: 444 Interpretive Statements SINUS TACHYCARDIA OTHERWISE NORMAL ECG RI6.02 No previous ECG available for comparison
[2021-10-02 12:11] LABS: INFLUENZA A PATIENT NEGATIVE (NEGATIVE); INFLUENZA B PATIENT NEGATIVE (NEGATIVE)
[2021-10-02] MEDS ORDERED: ALBU2.5V8 IH (12:21)
[2021-10-02] MEDS ORDERED: BENZ200C47 PO ×2 (12:21→13:16)
[2021-10-02 12:44] VITALS: BP 130/69
[2021-10-02] MEDS ORDERED: ALBU2.5V8 INH (13:16)
== END 2021-10-02 12:47 | disposition home or self-care (01) ==
LOC: ER 11:00
DX: R05.9 Cough, unspecified (principal); Z20.822 Contact with and (suspected) exposure to COVID-19; R06.02 Shortness of breath; R07.89 Other chest pain; K21.9 Gastro-esophageal reflux disease without esophagitis; I10 Essential (primary) hypertension; K58.9 Irritable bowel syndrome, unspecified
CPT/HCPCS: 36415; 71045; 80048; 84484; 85025; 87804; 93005; 96360; 99285; C9803; J7030; U0003

== ENCOUNTER 2021-11-12 04:52 | Emergency (ER) | payer MEDICARE, BC ==
[~2021-11-12] VITALS: Ht 160 cm; Wt 84.1 kg
[~2021-11-12 04:52] MED LIST changes: +ALBU2.5V8 IH; +ALBU2.5V8 INH; +BENZ200C47 PO
[2021-11-12 05:01] VITALS: BP 137/69
[2021-11-12] MEDS ORDERED: diphenhydrAMINE 50 MG/ML VIAL IVP ONE (06:00)
[2021-11-12] MEDS ORDERED: METOCLOPRAMIDE HCL 10 MG/2 ML VIAL. IVP ONE (06:00)
--- NOTE | 2021-11-12 06:19 | RAD ---
EXAM: XR BILAT FEET 3 VIEWS. HISTORY: Bilateral foot pain. COMPARISON: None. FINDINGS: On the right, soft tissue calcifications overlie a moderate osseous bunion. There is mild f irst metatarsophalangeal osteoarthritis and mild hallux valgus. Soft tissue swelling is noted along t he medial forefoot. No fractures are identified. Other joint spaces are maintained. On the left, there is a small soft tissue bunion. There is a moderate plantar calcaneal spur and ther e are mild calcifications along the proximal plantar fascia. No fractures are identified. Joint space s and alignment are maintained. IMPRESSION: 1. Soft tissue calcifications within a right bunion. Correlate for crystalline arthropathy. Mild firs t metatarsophalangeal osteoarthritis. 2. Changes consistent with chronic plantar fasciitis on the left. Electronically signed by: Kerrie Sutherland MD (11/12/2021 6:17 AM) [id number]
--- NOTE | 2021-11-12 06:25 | PHYS DOC ---
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 Patient denies any known trauma. Reports pain is sharp and stabbing. Patient does have a history of fibromyalgia and arthritis. Patient reports her fibromyalgia and arthritis pain are different than this. Patient denies any fever or chills. Reports has not taking anything for pain today. Patient reports pain worse with ambulation. (JESSIKA LEZAMA DO) Review of Systems: Review of Systems: Constitutional: Denies fever or chills Eyes: Denies redness or eye pain HENT: Denies nasal congestion or sore throat Respiratory: Denies cough or shortness of breath Cardiovascular: Denies chest pain or palpitations GI: Denies abdominal pain, nausea, or vomiting : Denies dysuria or hematuria Musculoskeletal: Denies back pain; reports bilateral foot pain Integument: Denies rash or skin lesions Neurologic: Denies headache, focal weakness or sensory changes Complete systems were reviewed and found to be within normal limits, except as documented in this note. (JESSIKA LEZAMA DO) Current Medications: Current Meds: Current Medications Medications (Trade) Dose Ordered Sig/[facility] Start Time Stop Time Status Last Admin Dose Admin Dexamethasone Sodium Phosphate (Decadron) 10 mg 1X ONCE 11/12/21 06:00 11/12/21 06:01 DC Diphenhydramine HCl (Benadryl) 25 mg 1X ONCE 11/12/21 06:00 11/12/21 05:33 DC Ketorolac Tromethamine (Toradol 15mg Vial) 15 mg 1X ONCE 11/12/21 06:00 11/12/21 06:01 DC Metoclopramide HCl (Reglan Vial) 10 mg 1X ONCE 11/12/21 06:00 11/12/21 05:33 DC Sodium Chloride 1,000 ml @ 1,000 mls/hr 1X ONCE 11/12/21 06:00 11/12/21 06:59 (JESSIKA LEZAMA DO) Allergies: Allergies: Allergies Coded Allergies Type Severity Reaction Last Updated Verified No Known Drug Allergies 03/16/21 No (JESSIKA LEZAMA DO) Physical Exam: PE: Constitutional: Well developed, well nourished, uncomfortable and tearful, non- toxic appearance HENT: Normocephalic, atraumatic Eyes: Conjunctiva normal, no discharge Neck: Normal range of motion, supple Lungs & Thorax: No respiratory distress, equal chest rise and fall Skin: Warm, dry, no erythema, no rash Extremities: Pain to dorsum of bilateral feet with palpation, no deformity noted, DP +2 bilaterally, mild swelling noted to dorsum of both feet Neurologic: Alert and oriented X 3, no focal deficits noted Psychologic: Affect normal, judgment normal (JESSIKA LEZAMA DO) Current Patient Data: Vital Signs: Vital Signs Date Time Temp Pulse Resp B/P (MAP) Pulse Ox O2 Delivery O2 Flow Rate FiO2 11/12/21 05:01 98.2 100 18 137/69 (91) 98 Room Air (JESSIKA LEZAMA DO) Labs: Laboratory Tests Test 11/12/21 06:10 White Blood Count 10.7 x10^3/uL Red Blood Count 3.65 x10^6/uL Hemoglobin 11.6 g/dL Hematocrit 34.9 % Mean Corpuscular Volume 96 fL Mean Corpuscular Hemoglobin 32 pg Mean Corpuscular Hemoglobin Concent 33 g/dL Red Cell Distribution Width 13.4 % Platelet Count 307 x10^3/uL Neutrophils (%) (Auto) 62 % Lymphocytes (%) (Auto) 23 % Monocytes (%) (Auto) 13 % Eosinophils (%) (Auto) 1 % Basophils (%) (Auto) 1 % Neutrophils # (Auto) 6.6 x10^3uL Lymphocytes # (Auto) 2.5 x10^3/uL Monocytes # (Auto) 1.4 x10^3/uL Eosinophils # (Auto) 0.1 x10^3/uL Basophils # (Auto) 0.1 x10^3/uL Erythrocyte Sedimentation Rate Pending Sodium Level 140 mmol/L Potassium Level 3.8 mmol/L Chloride Level 103 mmol/L Carbon Dioxide Level 25 mmol/L Anion Gap 12 Blood Urea Nitrogen 8 mg/dL Creatinine 1.1 mg/dL Estimated GFR (Cockcroft-Gault) 59.9 BUN/Creatinine Ratio 7 Glucose Level 85 mg/dL Lactic Acid Level 1.4 mmol/L Uric Acid 5.7 mg/dL Calcium Level 9.0 mg/dL Magnesium Level 2.0 mg/dL Total Bilirubin 0.9 mg/dL Aspartate Amino Transf (AST/SGOT) 20 U/L Alanine Aminotransferase (ALT/SGPT) 9 U/L Alkaline Phosphatase 92 U/L C-Reactive Protein 58.0 mg/L Total Protein 7.7 g/dL Albumin 3.2 g/dL Albumin/Globulin Ratio 0.7 Current Medications Medications (Trade) Dose Ordered Sig/Randal Route PRN Reason Start Time Stop Time Status Last Admin Dose Admin Sodium Chloride 1,000 ml @ 1,000 mls/hr 1X ONCE IV 11/12/21 06:00 11/12/21 06:59 DC 11/12/21 06:27 Dexamethasone Sodium Phosphate (Decadron) 10 mg 1X ONCE IV 11/12/21 06:00 11/12/21 06:01 DC 11/12/21 06:30 Ketorolac Tromethamine (Toradol 15mg Vial) 15 mg 1X ONCE IVP 11/12/21 06:00 11/12/21 06:01 DC 11/12/21 06:27 Diphenhydramine HCl (Benadryl) 25 mg 1X ONCE IVP 11/12/21 06:00 11/12/21 05:33 DC Metoclopramide HCl (Reglan Vial) 10 mg 1X ONCE IVP 11/12/21 06:00 11/12/21 05:33 DC Vital Signs: Vital Signs Date Time Temp Pulse Resp B/P (MAP) Pulse Ox O2 Delivery O2 Flow Rate FiO2 11/12/21 05:01 98.2 100 18 137/69 (91) 98 Room Air Vital Signs Date Time Temp Pulse Resp B/P (MAP) Pulse Ox O2 Delivery O2 Flow Rate FiO2 11/12/21 05:01 98.2 100 18 137/69 (91) 98 Room Air (JAY OLSEN DO) EKG: EKG: [] (JESSIKA LEZAMA DO) Radiology/Procedures: Radiology/Procedures: [] (JESSIKA LEZAMA DO) Radiology/Procedures: EXAM: XR BILAT FEET 3 VIEWS. HISTORY: Bilateral foot pain. COMPARISON: None. FINDINGS: On the right, soft tissue calcifications overlie a moderate osseous bunion. There is mild first metatarsophalangeal osteoarthritis and mild hallux valgus. Soft tissue swelling is noted along the medial forefoot. No fractures are identified. Other joint spaces are maintained. On the left, there is a small soft tissue bunion. There is a moderate plantar calcaneal spur and there are mild calcifications along the proximal plantar fascia. No fractures are identified. Joint spaces and alignment are maintained. IMPRESSION: 1. Soft tissue calcifications within a right bunion. Correlate for crystalline arthropathy. Mild first metatarsophalangeal osteoarthritis. 2. Changes consistent with chronic plantar fasciitis on the left. Electronically signed by: Kerrie Sutherland MD (11/12/2021 6:17 AM) [id number] (JAY OLSEN DO) Heart Score: C/O Chest Pain: N/A (JESSIKA LEZAMA DO) C/O Chest Pain: No (JAY OLSEN DO) Course & Med Decision Making: Course & Med Decision Making Pertinent Labs and Imaging studies reviewed. (See chart for details) Patient presents with bilateral foot pain primarily to dorsal aspect of midfoot. Feet neurovascularly intact. Patient does have a history of arthritis as well as fibromyalgia. Patient reports pain is different. Denies trauma. X-rays obtained. Labs ordered and pending. Pain addressed. 0600-sign out given to Dr. Olsen for further evaluation and final disposition. Discussed current findings and plan with patient, who acknowledges un derstanding and agreement. (JESSIKA LEZAMA DO) Course & Med Decision Making I assumed care of patient after comprehensive signout from off going physician. I reviewed entirety of ER work-up and personally saw and evaluated patient repeating aspects of history and physical exam Patient has no motor or sensory or neurologic findings of bilateral lower extremities. TP and DP pulses to bilateral feet are intact and 2+ Patient reports pain is worse on left, states it is mostly on ventral portion over the navicular with heightened sensation and pain with light palpation, low risk for vascular/neuro compromise, compartment syndrome, other life or limb conditions Ultimately, joint decision made for discharge home with supportive care practices and close primary care follow-up. I did disclose this might be an acute presentation of more concerning pathology such as gout but likely atypical given presentation today I discussed most likely diagnosis of fibromyalgia versus other nonemergent/life or limb threatening condition. Topics were had to prescribe short-term narcotic pain medication but patient currently prescribed large amounts by primary care physician. Advised her to contact them immediately after ER departure (JAY OLSEN DO) Naheed Disclaimer: Naheed Disclaimer: This electronic medical record was generated, in whole or in part, using a voice recognition dictation system. (JESSIKA LEZAMA DO) Departure Departure: Impression: Primary Impression: Bilateral foot pain Disposition: HOME / SELF CARE / HOMELESS Condition: STABLE Referrals: EREN FISCHER (PCP) Additional Instructions: You have been evaluated in the Emergency Department today for bilateral foot pain. The x-ray of your feet did not show any acute bony abnormalities. I did disclose findings of left chronic plantar fasciitis and right bunion with chronic arthritis findings You can utilize every 4-6 hours to help control your pain. Please continue to take your chronically prescribed narcotic pain medication and review need for medication adjustments with prescriber. Please also rest, ice, and elevate your feet to control your pain. As disclosed, you would benefit from close primary care follow-up in addition to outpatient dag sprayer consultation given your diagnosis of fibromyalgia. Pain management consultation could also be indicated. There is is little indication for orthopedic consultation for your arthritis at present Return to the Emergency Department if you experience worsening pain, numbness/tingling, change of color in your toes, or any other concerning symptoms. JESSIKA LEZAMA DO Nov 12, 2021 06:25 JAY OLSEN DO Nov 12, 2021 07:53
[2021-11-12] MEDS: KETOROLAC 15 MG/ML VIAL. IVP ONE (06:27)
[2021-11-12] MEDS: IV NORMAL SALINE 1,000ML 1,000 ML IV ONE (06:27)
[2021-11-12] MEDS: DEXAMETHASONE SOD PHOS 10 MG/ML VIAL. IV ONE (06:30)
[2021-11-12 06:52] LABS: BASO # 0.1 x10^3/uL (0.0-0.2); BASO % 1 % (0-3); EOS # 0.1 x10^3/uL (0.0-0.7); EOS % 1 % (0-3); HEMATOCRIT 34.9 % (36.0-47.0); HEMOGLOBIN 11.6 g/dL (12.0-15.5); LYMPH # 2.5 x10^3/uL (1.0-4.8); LYMPH % 23 % (24-48); MEAN CORPUSCULAR HEMOGLOBIN 32 pg (25-35); MEAN CORPUSCULAR HGB CONC 33 g/dL (31-37); MEAN CORPUSCULAR VOLUME 96 fL (79-100); MONO # 1.4 x10^3/uL (0.0-1.1); MONO % 13 % (0-9); NEUT # 6.6 x10^3uL (1.8-7.7); NEUT % 62 % (31-73); PLATELET COUNT 307 x10^3/uL (140-400); RED BLOOD COUNT 3.65 x10^6/uL (3.50-5.40); RED CELL DISTRIBUTION WIDTH 13.4 % (11.5-14.5); WHITE BLOOD COUNT 10.7 x10^3/uL (4.0-11.0)
[2021-11-12 07:03] LABS: CREATININE 1.1 mg/dL (0.6-1.0); GFR 59.9; POTASSIUM 3.8 mmol/L (3.5-5.1)
[2021-11-12 07:18] LABS: ALBUMIN 3.2 g/dL (3.4-5.0); ALBUMIN/GLOBULIN RATIO 0.7 (1.0-1.7); TOTAL BILIRUBIN 0.9 mg/dL (0.2-1.0); TOTAL PROTEIN 7.7 g/dL (6.4-8.2); URIC ACID 5.7 mg/dL (2.6-6.0)
[2021-11-12] MEDS ORDERED: HYDR-2155 PO (07:51)
[2021-11-12 08:05] LABS: SEDIMENTATION RATE 54 (0-25)
[2021-11-12] MEDS: HYDROcodone/APAP 5/325MG 1 TAB TABLET PO ONE (08:06)
== END 2021-11-12 08:15 | disposition home or self-care (01) ==
LOC: ER 04:52
DX: M79.672 Pain in left foot (principal); M79.671 Pain in right foot; M19.90 Unspecified osteoarthritis, unspecified site; F41.9 Anxiety disorder, unspecified; M79.7 Fibromyalgia; K21.9 Gastro-esophageal reflux disease without esophagitis; I10 Essential (primary) hypertension
CPT/HCPCS: 36415; 73630; 80053; 83605; 83735; 84550; 85025; 85651; 86140; 96361; 96374; 96375; 99284; J1100; J1885; J7030

== ENCOUNTER 2021-11-27 09:06 | Emergency (ER) | payer MEDICARE, BC ==
[~2021-11-27] VITALS: Ht 160 cm; Wt 84.1 kg
[2021-11-27 09:15] VITALS: BP 165/78
--- NOTE | 2021-11-27 09:21 | PHYS DOC ---
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 The patient was walking in her house 3 days ago and tripped over the rug. She is not sure exactly how her foot twisted but it was the only injury she sustained. She has pain over the lateral malleolus and the entire top of her foot. It continues to be swollen and she has some ecchymosis. She can walk on her heel but cannot put pressure on the front of her foot. She decided she should come in for evaluation and is worried about fracture. No history of ankle problems previously. She denies any other injuries or complaints at this time. Review of Systems: Review of Systems: Constitutional: Denies fever or chills Eyes: Denies change in visual acuity HENT: Denies nasal congestion or sore throat Respiratory: Denies cough or shortness of breath Cardiovascular: Denies chest pain or edema GI: Denies abdominal pain, nausea, vomiting, bloody stools or diarrhea : Denies dysuria Musculoskeletal: Left foot and ankle pain Integument: Denies rash Neurologic: Denies headache, focal weakness or sensory changes Endocrine: Denies polyuria or polydipsia Lymphatic: Denies swollen glands Psychiatric: Denies depression or anxiety Allergies: Allergies: Allergies Coded Allergies Type Severity Reaction Last Updated Verified No Known Drug Allergies 03/16/21 No Physical Exam: PE: Constitutional: Well developed, well nourished, no acute distress, non-toxic appearance. [] HENT: Normocephalic, atraumatic, bilateral external ears normal, oropharynx moist, no oral exudates, nose normal. [] Eyes: PERRLA, EOMI, conjunctiva normal, no discharge. [] Neck: Normal range of motion, no tenderness, supple, no stridor. [] Cardiovascular:Heart rate regular rhythm, no murmur [] Lungs & Thorax: Bilateral breath sounds clear to auscultation [] Abdomen: Bowel sounds normal, soft, no tenderness, no masses, no pulsatile masses. [] Skin: Warm, dry, no erythema, no rash. [] Back: No tenderness, no CVA tenderness. [] Extremities: Tenderness of the left ankle and dorsal foot, significant swelling and ecchymosis. [] Neurologic: Alert and oriented X 3, normal motor function, normal sensory function, no focal deficits noted. [] Psychologic: Affect normal, judgement normal, mood normal. [] Current Patient Data: Vital Signs: Vital Signs Date Time Temp Pulse Resp B/P (MAP) Pulse Ox O2 Delivery O2 Flow Rate FiO2 11/27/21 09:15 97.9 119 16 165/78 (107) 100 Room Air EKG: EKG: [] Radiology/Procedures: Radiology/Procedures: [] Impressions: XR EXAM OF ANKLE_LEFT 3V, XR FOOT_LEFT 3 VIEWS Clinical indications: Reason: fall on 11/24/2021 /pain. Left ankle: Lateral soft tissue swelling is seen. No acute fracture or dislocation or osteolytic process is evident. Mortise ankle joint is intact. Left foot: No acute fracture or dislocation or lytic process is seen. No periosteal reaction is evident. There is calcification of the lateral capsular ligament of the first and second metatarsal phalangeal joints. Moderate-sized plantar of the calcaneus is seen. IMPRESSION: No acute osseous abnormality is evident. Electronically signed by: Rafa Villaseñor MD (11/27/2021 9:47 AM) [id number] DICTATED AND SIGNED BY: RAFA VILLASEÑOR MD DATE: 11/27/21 0933 CC: AVRIL ARIAS DO; EREN FISCHER ~MTH0 0 Heart Score: C/O Chest Pain: N/A Risk Factors: Risk Factors: DM, Current or recent (<one month) smoker, HTN, HLP, family history of CAD, obesity. Risk Scores: Score 0 - 3: 2.5% MACE over next 6 weeks - Discharge Home Score 4 - 6: 20.3% MACE over next 6 weeks - Admit for Clinical Observation Score 7 - 10: 72.7% MACE over next 6 weeks - Early Invasive Strategies Course & Med Decision Making: Course & Med Decision Making Pertinent Labs and Imaging studies reviewed. (See chart for details) The patient's x-rays negative for fracture. She appears to have a bad sprain. Advised supportive care such as RICE therapy and I will give her [place] for pain control. She is stable for discharge at this time. [] Naheed Disclaimer: Naheed Disclaimer: This electronic medical record was generated, in whole or in part, using a voice recognition dictation system. Departure Departure: Impression: Primary Impression: Moderate left ankle sprain Qualified Codes: S93.402A - Sprain of unspecified ligament of left ankle, initial encounter Disposition: HOME / SELF CARE / HOMELESS Condition: STABLE Referrals: EREN FISCHER (PCP) Patient Instructions: Ankle Sprain, Acute, with Phase I Rehab-[facility] Scripts Hydrocodone/Acetaminophen (Hydrocodone-Acetamin 5-325 mg) 1 Each Tablet 1 EACH PO Q4-6HRS PRN for PAIN, #10 TAB Prov: AVRIL ARIAS DO 11/27/21 AVRIL ARIAS DO Nov 27, 2021 09:21
--- NOTE | 2021-11-27 09:50 | RAD ---
XR EXAM OF ANKLE_LEFT 3V, XR FOOT_LEFT 3 VIEWS Clinical indications: Reason: fall on 11/24/2021 /pain. Left ankle: Lateral soft tissue swelling is seen. No acute fracture or dislocation or osteolytic proc ess is evident. Mortise ankle joint is intact. Left foot: No acute fracture or dislocation or lytic process is seen. No periosteal reaction is evide nt. There is calcification of the lateral capsular ligament of the first and second metatarsal phalan geal joints. Moderate-sized plantar of the calcaneus is seen. IMPRESSION: No acute osseous abnormality is evident. Electronically signed by: Rafa Villaseñor MD (11/27/2021 9:47 AM) [id number]
[2021-11-27] MEDS ORDERED: HYDROcodone/APAP 5/325MG 1 TAB TABLET PO ONE (10:00)
[2021-11-27] MEDS ORDERED: HYDR-2759 PO (10:04)
== END 2021-11-27 10:30 | disposition home or self-care (01) ==
LOC: ER 09:06
DX: S93.402A Sprain of unspecified ligament of left ankle, initial encounter (principal); F41.9 Anxiety disorder, unspecified; M19.90 Unspecified osteoarthritis, unspecified site; M79.7 Fibromyalgia; K21.9 Gastro-esophageal reflux disease without esophagitis; I10 Essential (primary) hypertension; W22.8XXA Striking against or struck by other objects, initial encounter; Y93.01 Activity, walking, marching and hiking; Y92.89 Other specified places as the place of occurrence of the external cause; Y99.8 Other external cause status
CPT/HCPCS: 73610; 73630; 99284; L4350

== ENCOUNTER → 2022-02-21 | Outpatient (CLI) | payer MEDICARE, BC ==
[~2022-02-21] MED LIST changes: +HYDR-2759 PO
--- NOTE | 2022-02-21 14:03 | RAD ---
EXAM: Left foot, 3 views. HISTORY: Fracture. Pain. COMPARISON: 11/27/2021 FINDINGS: 3 views of the left foot are obtained. There is a small ossicle along the lateral aspect of the first metatarsal phalangeal joint. This is new compared to the study performed 11/12/2021, possibl y due to a chronic displaced avulsion fracture fragment. There is also a new ossicle at the base of t he second proximal phalanx which may be due to an avulsion injury. No convincing acute fracture is se en. There is a small plantar spur. There is calcification of the plantar fascia. There is a small ent hesophyte at the Achilles tendon insertion. IMPRESSION: 1. Small ossicles at the base of the first and second proximal phalanges. These are not seen on the s tudy performed 11/12/2021, possibly due to interval avulsion fractures. These appear to be chronic. 2. Small plantar spur and enthesopathy at Achilles tendon insertion. Electronically signed by: Anneliese Slaughter MD (02/21/2022 2:00 PM) [id number]
== END ==
LOC: RAD 12:54
PROVIDERS: ATTEND Podiatrist
DX: M77.52 Other enthesopathy of left foot and ankle (principal); M89.8X7 Other specified disorders of bone, ankle and foot
CPT/HCPCS: 73630